=== PATIENT | male | born 1945 | race Caucasian/White ===

== ENCOUNTER 2018-01-06 11:01 | Inpatient (IN) | payer OTHER ==
[2018-01-06] MEDS ORDERED: NS 1,000 ML IV ONE ×2 (11:20→11:53)
[2018-01-06] MEDS ORDERED: HYDROmorphONE/DILAUDID 2 MG/ML INJ IVP ONE ×3 (11:21→12:25)
[2018-01-06] MEDS ORDERED: ONDANSETRON 4 MG/2 ML VIAL IVP ONE (11:21)
--- NOTE | 2018-01-06 11:49 | EDPHY ---
H & P Stated Complaint: left flank pain started ~ 1 hour ago . n/v. intermittent Time Seen by Provider: 01/06/18 11:06 HPI/ROS: This patient complains of abrupt onset of left flank pain 1 hr prior to arrival that is 9/10 intensity achy and sharp in nature and radiates to his left groin. The onset of the pain occurred when he bent over to do some saw during on a sprinkler system at home. He reports associated nausea and vomiting x3 including an episode of vomiting shortly after he ingested 600 mg of ibuprofen. He feels that he vomited up the ibuprofen. He has ongoing nausea currently. He has not taken any other medications for this pain prior to arrival. He drove himself here by private vehicle for evaluation of the symptoms. He notes that the pain is similar to prior kidney stones but also wears a may have injured himself when he bent over. ROS: Constitutional: No fevers or chills HEENT: No complaints pulmonary: No shortness of breath or cough Cardiovascular: No heart palpitations or lightheadedness. No lower extremity discoloration. Neuro: No numbness or tingling in lower extremities or back. GI: No distension. He reports mild suprapubic discomfort over the past week or so. No hematemesis. No dark tarry stools. : No testicular swelling. No dysuria. No hematuria Integumentary: No skin rash Endocrine: No complaints 10 point review of symptoms is performed and otherwise negative with exception of pertinent positives and negatives listed in HPI and ROS Source: Patient Exam Limitations: No limitations - Personal History Current Tetanus/Diphtheria Vaccine: Unsure Current Tetanus Diphtheria and Acellular Pertussis (TDAP): Unsure - Medical/Surgical History Hx Asthma: No Hx Chronic Respiratory Disease: No Hx Diabetes: No Hx Cardiac Disease: No Other PMH: kidney stones. HTN. appendectomy. rhinoplasty. b hernia repair - Social History Smoking Status: Former smoker Alcohol Use: Occasionally Drug Use: None - Physical Exam Exam: General Appearance: Alert, with some distress from pain. Patient is moving about trying to find a more comfortable position Eyes: Pupils equal and round no pallor or injection. ENT, Mouth: Mucous membranes moist. Respiratory: There are no retractions, lungs are clear to auscultation. Cardiovascular: Regular rate and rhythm. Gastrointestinal: Normoactive, soft, minimal suprapubic tenderness. No guarding or rebound. Back: No significant CVA tenderness : No right testicular tenderness. Patient does not have a left testicle no evidence of inguinal hernia currently. Neurological: GCS 15 with no focal deficits. Skin: Warm and dry, no rashes. Musculoskeletal: Neck is supple nontender. Extremities are symmetrical, full range of motion. Psychiatric: Mood and affect are normal DIFFERENTIAL DIAGNOSIS: After history and physical exam differential diagnosis was considered for kidney stone, aortic dissection, musculoskeletal back strain , diverticulitis, UTI Constitutional: Initial Vital Signs Temperature (C) 36.5 C 01/06/18 11:05 Heart Rate 86 01/06/18 11:05 Respiratory Rate 20 01/06/18 11:05 Blood Pressure 174/90 H 01/06/18 11:05 O2 Sat (%) 98 01/06/18 11:05 O2 Delivery Mode Room Air Allergies/Adverse Reactions: No Known Allergies Allergy (Verified 01/06/18 11:11) Home Medications: Medication Instructions Recorded Aspirin [Aspir 81] 81 mg PO 03/17/12 Allopurinol 01/06/18 amLODIPine BESYLATE 01/06/18 Medical Decision Making - Diagnostics Imaging Results: Imaging Impressions Abdomen/Pelvis CT 01/06/18 11:22 Impression: 1. There is a 7.4 mm stone in the proximal left ureter with mild hydronephrosis. 2. Other nonobstructing stones in both kidneys. 3. Cholelithiasis. 4. Small hiatal hernia. 5. Colonic diverticulosis. Findings and recommendations discussed with IMER POLO at 12:15 hour, . Imaging: Discussed imaging studies w/ call center associate Radiologist (I also personally reviewed these CT images) ED Course/Re-evaluation: IV normal saline bolus Zofran 4 mg IV with resolution of nausea Dilaudid 1 mg initially with some relief does 6/10 but then pain quickly recurred to severe status with 2nd dose of 0.5 mg Dilaudid thereafter Patient returns from CT with 8/10 continued pain. Is then treated with lidocaine drip (150 mg dose), and Tylenol p.o. I spoke with [id number] practitioner the hospitalist group accepts the patient to Dr. Woodruff, Hospitalist at [facility] for further hydration and analgesia. Dr. Barros will consult. The patient's daughter arrived and will take him by private vehicle for his admission to [facility]. Discussion: Patient with proximal large (7.5 mm) ureteral stone with severe pain and mild elevation of creatinine with severe pain vomiting warranting admission for further treatment of pain, dehydration and urology consult. I did speak with Dr. Barros-urologist on-call who will see the patient in the hospital in consultation. - Data Points Laboratory Results: 01/06/18 11:36 POC Sodium 143 mEq/L mEq/L (135-145) POC Potassium 3.6 mEq/L mEq/L (3.3-5.0) POC Chloride 105.0 mEq/L mEq/L (97-110) POC Total CO2 21 mEq/L L mEq/L (22-31) POC BUN 24 mg/dL H mg/dL (7-23) POC Creatinine 1.5 mg/dL H mg/dL (0.7-1.3) POC Glucose 119 mg/dL H mg/dL (70-100) POC Calcium 9.9 mg/dL mg/dL (8.5-10.4) Urine dip revealed 1+ ketones, no blood, leukocytes or other significant abnormal findings except mild protein CBC is pending Medications Given: Discontinued Medications Acetaminophen (Tylenol) 1,000 mg PO EDNOW ONE Stop: 01/06/18 12:26 Last Admin: 01/06/18 13:00 Dose: 1,000 mg Hydromorphone HCl (Dilaudid) 1 mg IVP EDNOW ONE Stop: 01/06/18 11:22 Last Admin: 01/06/18 11:33 Dose: 1 mg Hydromorphone HCl (Dilaudid) 0.5 mg IVP EDNOW ONE Stop: 01/06/18 11:47 Last Admin: 01/06/18 11:50 Dose: 0.5 mg Hydromorphone HCl (Dilaudid) 0.5 mg IVP EDNOW ONE Stop: 01/06/18 12:26 Last Admin: 01/06/18 13:57 Dose: Not Given Sodium Chloride (Ns) 1,000 mls @ 0 mls/hr IV EDNOW ONE; Wide Open PRN Reason: Protocol Stop: 01/06/18 11:21 Last Admin: 01/06/18 11:30 Dose: 1,000 mls Sodium Chloride (Ns) 1,000 mls @ 0 mls/hr IV ONCE ONE; Wide Open PRN Reason: Protocol Stop: 01/06/18 11:54 Last Admin: 01/06/18 12:15 Dose: 1,000 mls Lidocaine HCl 150 mg/ Sodium (Chloride) 115 mls @ 600 mls/hr IV EDNOW ONE Stop: 01/06/18 12:37 Last Admin: 01/06/18 12:36 Dose: 115 mls Ondansetron HCl (Zofran) 4 mg IVP EDNOW ONE Stop: 01/06/18 11:22 Last Admin: 01/06/18 11:33 Dose: 4 mg Tamsulosin HCl (Flomax) 0.4 mg PO EDNOW ONE Stop: 01/06/18 12:33 Last Admin: 01/06/18 13:00 Dose: 0.4 mg Point of Care Test Results: Chemistry 01/06/18 11:36 POC Sodium 143 mEq/L mEq/L (135-145) POC Potassium 3.6 mEq/L mEq/L (3.3-5.0) POC Chloride 105.0 mEq/L mEq/L (97-110) POC Total CO2 21 mEq/L L mEq/L (22-31) POC BUN 24 mg/dL H mg/dL (7-23) POC Creatinine 1.5 mg/dL H mg/dL (0.7-1.3) POC Glucose 119 mg/dL H mg/dL (70-100) POC Calcium 9.9 mg/dL mg/dL (8.5-10.4) Urine Dip Collection Date 01/06/18 Collection Time 13:35 Specific [place] (1.002-1.030) 1.015 PH (5.0-7.5) 7.5 Leukocytes (Negative) Negative Nitrites (Negative) Negative Protein (Negative) 1+ Glucose (Negative) Negative Ketones (Negative) 1+ Urobilnogen (0.2-1.0 EU) 0.2 Bilirubin (Negative) Negative Blood (Negative) Negative Departure - Departure Disposition: [facility] Clinical Impression: Ureteral stone with hydronephrosis, Acute renal insufficiency Condition: Fair
[2018-01-06] MEDS ORDERED: ACETAMINOPHEN 500 MG TAB PO ONE (12:25)
[2018-01-06] MEDS ORDERED: LIDOCAINE 1% 150 MG in NS 100 ML IV ONE (12:26)
[2018-01-06] MEDS ORDERED: TAMSULOSIN HCL 0.4 MG CAP PO ONE (12:32)
[2018-01-06 15:06] LABS: PLATELET COUNT 287 10^3/uL (150-400)
[2018-01-06] MEDS ORDERED: HYDROmorphONE/DILAUDID 2 MG/ML INJ IVP PRN ×2 (15:51→16:36)
[2018-01-06] MEDS ORDERED: PROMETHAZINE HCL 25 MG/ML INJ IVP PRN (16:00)
[2018-01-06] MEDS ORDERED: ONDANSETRON 4 MG/2 ML VIAL IVP PRN (16:00)
[2018-01-06] MEDS ORDERED: ACETAMINOPHEN 325 MG TAB PO PRN (16:00)
[2018-01-06] MEDS ORDERED: HYDROmorphONE/DILAUDID 1 MG/ML INJ IVP PRN (16:00)
[2018-01-06] MEDS ORDERED: ONDANSETRON DISINTEGRATING 4 MG TAB PO PRN (16:00)
[2018-01-06] MEDS ORDERED: LORazepam 2 MG/ML INJ IVP PRN (16:00)
[2018-01-06] MEDS ORDERED: KETOROLAC 15 MG/1 ML SDV IVP PRN (16:25)
[2018-01-06] MEDS: oxyCODONE IR 5 MG TAB PO PRN ×2 (16:46→20:33)
--- NOTE | 2018-01-06 17:28 | PDGENHP ---
History and Physical - Chief Complaint flank pain/n/v - History of Present Illness 72yo M with hx of kidney stones x 2 requiring lithotripsy presenting with flank pain, n/v and inability to eat since earlier today. The pain is over his left flank and radiates to his groin and is similar but much worse than the sxs he has had in the past related to kidney stones. He has not had any change in his urination, has not had fever or chills. He has been having normal BM. History Information - Allergies/Home Medication List Allergies/Adverse Reactions: No Known Allergies Allergy (Verified 01/06/18 11:11) Home Medications: Aspirin [Aspir 81] 81 mg PO 03/17/12 [Last Taken Unknown] Allopurinol 01/06/18 [Last Taken Unknown] amLODIPine BESYLATE 01/06/18 [Last Taken Unknown] I have personally reviewed and updated: family history, medical history, social history, surgical history - Past Medical History hypertension Additional medical history: kidney stones - Surgical History Reports: appendectomy, hernia repair Additional surgical history: rhinoplasty. lithotripsy - Family History Positive for: non-pertinent - Social History Smoking Status: Former smoker Alcohol Use: Occasionally Drug Use: None Review of Systems Review of Systems: ROS: 10pt was reviewed & negative except for what was stated in HPI & below Physical Exam Physical Exam: Temp Pulse Resp BP Pulse Ox 36.4 C 91 16 159/87 H 94 01/06/18 16:07 01/06/18 16:07 01/06/18 16:07 01/06/18 16:07 01/06/18 16:07 Constitutional: appears nourished, uncomfortable Eyes: PERRL, anicteric sclera Ears, Nose, Mouth, Throat: moist mucous membranes, hearing normal, ears appear normal Cardiovascular: regular rate and rhythym, no murmur, rub, or gallop, No edema Respiratory: no respiratory distress, no rales or rhonchi, clear to auscultation Gastrointestinal: normoactive bowel sounds, tenderness, No guarding, No rebound Genitourinary: no bladder tenderness Skin: warm, normal color Musculoskeletal: full muscle strength Neurologic: AAOx3 Psychiatric: interacting appropriately, not anxious, not encephalopathic Lab Data & Imaging Review 01/06/18 11:28 WBC 10.09 10^3/uL (3.80-9.50) H 01/06/18 11:28 RBC 4.94 10^6/uL (4.40-6.38) 01/06/18 11:28 Hgb 15.5 g/dL (13.7-17.5) 01/06/18 11:28 Hct 44.7 % (40.0-51.0) 01/06/18 11:28 MCV 90.5 fL (81.5-99.8) 01/06/18 11:28 MCH 31.4 pg (27.9-34.1) 01/06/18 11:28 MCHC 34.7 g/dL (32.4-36.7) 01/06/18 11:28 RDW 13.2 % (11.5-15.2) 01/06/18 11:28 Plt Count 287 10^3/uL (150-400) 01/06/18 11:28 MPV 9.6 fL (8.7-11.7) 01/06/18 11:28 Neut % (Auto) 59.7 % (39.3-74.2) 01/06/18 11:28 Lymph % (Auto) 29.9 % (15.0-45.0) 01/06/18 11:28 [place] % (Auto) 8.0 % (4.5-13.0) 01/06/18 11:28 Eos % (Auto) 1.4 % (0.6-7.6) 01/06/18 11:28 Baso % (Auto) 0.7 % (0.3-1.7) 01/06/18 11:28 Nucleat RBC Rel Count 0.0 % (0.0-0.2) 01/06/18 11:28 Absolute Neuts (auto) 6.02 10^3/uL (1.70-6.50) 01/06/18 11:28 Absolute Lymphs (auto) 3.02 10^3/uL (1.00-3.00) H 01/06/18 11:28 Absolute Monos (auto) 0.81 10^3/uL (0.30-0.80) H 01/06/18 11:28 Absolute Eos (auto) 0.14 10^3/uL (0.03-0.40) 01/06/18 11:28 Absolute Basos (auto) 0.07 10^3/uL (0.02-0.10) 01/06/18 11:28 Absolute Nucleated RBC 0.00 10^3/uL (0-0.01) 01/06/18 11:28 Immature Gran % 0.3 % (0.0-1.1) 01/06/18 11:28 Immature Gran # 0.03 10^3/uL (0.00-0.10) 01/06/18 11:28 POC Sodium 143 mEq/L (135-145) 01/06/18 11:36 POC Potassium 3.6 mEq/L (3.3-5.0) 01/06/18 11:36 POC Chloride 105.0 mEq/L (97-110) 01/06/18 11:36 POC Total CO2 21 mEq/L (22-31) L 01/06/18 11:36 POC BUN 24 mg/dL (7-23) H 01/06/18 11:36 POC Creatinine 1.5 mg/dL (0.7-1.3) H 01/06/18 11:36 POC Glucose 119 mg/dL (70-100) H 01/06/18 11:36 POC Calcium 9.9 mg/dL (8.5-10.4) 01/06/18 11:36 Urine RBC 1-3 /hpf (0-3) 01/06/18 13:46 Urine WBC 1-3 /hpf (0-3) 01/06/18 13:46 Ur Epithelial Cells NONE SEEN /lpf (NONE-1+) 01/06/18 13:46 Urine Mucus TRACE /lpf (NONE-1+) 01/06/18 13:46 Visualized and Interpreted imaging results: Yes Interpretation: abd CT: 7.4 mm stone proximal left ureter mild hydro. hiatal hernia. cholelithiasis Assessment & Plan Assessment: Acute renal insufficiency (Acute) Ureteral stone with hydronephrosis (Acute) 72 M with PMH of nephrolithiasis admitted with ureterolithiasis and luis # ureterolithiasis: fairly large and causing mild hydro, patient in significant pain that is being difficult to control at this point, will continue IV dilaudid , IV toradol. Urology has been consulted and will see the patient in am for likely stent/lithotripsy. IVF and flomax overnight. # luis: unknown baseline but likely luis in the setting of above, poor po intake and obstructive uropathy, will continue IVF overnight and recheck in am # pain: severe, as per problem 1 # HTN: slightly elevated likely due to pain, will hold lisinopril # observation status, will likely be ready to dc in am Patient new to my care. Old records reviewed and summarized as above.
--- NOTE | 2018-01-06 19:49 | ASMTCMCOM ---
CM Note CM Note Notes: Patient admitted via ED for c/o left flank pain. Per CT he does have kidney stones. H&P pending. No needs identifed, CM available should needs arise. PLan: TBD Date Signed: 01/06/2018 04:32 PM Electronically Signed By:Natividad Madera RN
[2018-01-06] MEDS: NS 1,000 ML IV SCH (23:33)
[2018-01-06] MEDS ORDERED: CALCIUM CARBONATE 500 MG CHEWABLE TAB PO PRN (23:40)
[2018-01-07] MEDS: oxyCODONE IR 5 MG TAB PO PRN ×3 (01:31→11:33)
[2018-01-07 05:34] LABS: PLATELET COUNT 240 10^3/uL (150-400)
[2018-01-07] MEDS: TAMSULOSIN HCL 0.4 MG CAP PO SCH (08:24)
[2018-01-07] MEDS: NS 1,000 ML IV SCH (08:24)
--- NOTE | 2018-01-07 09:55 | GCON ---
ADMISSION DIAGNOSIS: Has been left ureteral calculus, by history, this 72-year-old gentleman who is admitted for nausea, vomiting, and left flank pain and he has had no fevers, chills and he was admitt ed because of the 7.4 mm proximal ureteral calculus with [id number] hydronephrosis. ALLERGIES: None. MEDICATIONS: Include: Aspirin, allopurinol, and amlodipine. PAST MEDICAL HISTORY: Hypertension and kidney stones. PAST SURGICAL HISTORY: Herniorrhaphy, appendectomy, lithotripsy, rhinoplasty. FAMILY HISTORY: Noncontributory. SOCIAL HISTORY: Former smoker. Occasional alcohol use. REVIEW OF SYSTEMS: Negative for cardiac, respiratory, GI and endocrine. PHYSICAL EXAM: VITALS: Blood pressure 159/87, pulse ox 94 percent, temp 36.4, and pulse 91. Head, ears, eyes, nose, throat normal. CHEST: Clear. HEART: Regular rate and rhythm. ABDOMEN: No orga nomegaly, rebound or guarding. LOWER EXTREMITIES: Normal. Male genitourinary exam will be performed at the time of surgery. LAB DATA: He had a white blood count on admission of 10.09, hematocrit of 44.7. Creatinine 1.5, BUN 24, calcium 9.9, and his CT scan reveals a 7.4, proximal left ureteral calculus with hydronephrosis. He also has cholelithiasis and a hiatal hernia. I have discussed with him the diagnoses well infor med on previous treatments for kidney stones. He has had a prior stent, so he was understanding of w hat that is and he will undergo ureteroscopy with laser lithotripsy on , unless he passes the stone spontaneously. /[id number]/MODL
--- NOTE | 2018-01-07 10:29 | HOSPPROG ---
Hospitalist Progress Note Assessment/Plan: 72 M with h/o nephrolithiasis admitted with ureterolithiasis and aditi # ureterolithiasis - 7.4 mm stone with mild hydro. Urology consulted. No fevers, but increased pyuria and wbc's up to 15K this am. -ureteroscopy and laser lithotripsy planned for today -given subjective fever/chills, leukocytosis and abnormal UA, will tx with ceftriaxone and follow Cx data # aditi: likely 2/2 obstructive uropathy. Cr up to 1.7 this am from 1.5 -holding lisinopril -follow, anticipate improvement with tx of above # HTN: normotensive this am -holding gely due to ADITI # dispo - change to inpt for urologic intervention and ongoing management Subjective: Pt doing ok, pain controlled. Had temp >100 this am with associated chills. No N/V. No CP or SOB. Objective: Vital Signs Temp Pulse Resp BP Pulse Ox 37.6 C 83 16 124/77 H 91 L 01/07/18 08:00 01/07/18 08:00 01/07/18 08:00 01/07/18 08:00 01/07/18 08:00 Laboratory Results 01/07/18 04:42 01/07/18 04:42 01/06/18 01/07/18 01/08/18 05:59 05:59 05:59 Intake Total 2600 808 Balance 2600 808 - Physical Exam Constitutional: no apparent distress Eyes: PERRL Ears, Nose, Mouth, Throat: moist mucous membranes Cardiovascular: regular rate and rhythym Respiratory: no respiratory distress, clear to auscultation Gastrointestinal: normoactive bowel sounds, soft, non-tender abdomen Genitourinary: other (+left cva tenderness) Skin: warm Musculoskeletal: full muscle strength Neurologic: AAOx3 Psychiatric: interacting appropriately ICD10 Worksheet Patient Problems: Problems Problem Status Onset Acute renal insufficiency Acute Ureteral stone with hydronephrosis Acute
[2018-01-07] MEDS: ceFAZolin 2 GM/DEXTROSE 100 ML IV ONE ×2 (12:09→16:34)
[2018-01-07] MEDS ORDERED: IOPAMIDOL (ISOVUE-M 300) 15 ML VIAL ONE (14:51)
[2018-01-07] MEDS ORDERED: LR 1,000 ML IV ONE (15:16)
--- NOTE | 2018-01-07 15:24 | PDANEPAE ---
ANE History of Present Illness left flank pain ANE Past Medical History - Cardiovascular History Hx Hypertension: Yes Hx Arrhythmias: No Hx Chest Pain: No Hx Coronary Artery / Peripheral Vascular Disease: No Hx CHF / Valvular Disease: No Hx Palpitations: No - Pulmonary History Hx COPD: No Hx Asthma/Reactive Airway Disease: No Hx Recent Upper Respiratory Infection: No Hx Oxygen in Use at Home: No Hx Sleep Apnea: No Sleep Apnea Screening Result - Last Documented: Positive - Neurologic History Hx Cerebrovascular Accident: No Hx Seizures: No Hx Dementia: No - Endocrine History Hx Diabetes: No Hypothyroid: No Hyperthyroid: No Obesity: no - Renal History Hx Renal Disorders: Yes Renal History Comment: ADITI - Liver History Hx Hepatic Disorders: No - Neurological & Psychiatric Hx Hx Neurological and Psychiatric Disorders: No - Chronic Pain History Chronic Pain: No ANE Review of Systems Review of systems is: negative Review of Systems: - Exercise capacity Exercise capacity: >=4 METS ANE Patient History - Allergies Allergies/Adverse Reactions: No Known Allergies Allergy (Verified 01/07/18 15:09) - Home Medications Home Medications: Allopurinol [Allopurinol 100 MG (*)] 100 mg PO DAILY 01/06/18 [Last Taken 07:00] Aspirin EC [Aspirin EC 81 mg (*)] 81 mg PO DAILY 01/06/18 [Last Taken 01/06/18 0700] amLODIPine BESYLATE [Norvasc 10 mg (*)] 10 mg PO DAILY 01/06/18 [Last Taken 04/13 07:00] - NPO status NPO Status: no food or drink >8 hours NPO Since - Liquids (Date): 01/06/18 NPO Since - Liquids (Time): 19:00 NPO Since - Solids (Date): 01/06/18 NPO Since - Solids (Time): 07:00 - Anes Hx Anes Hx: no prior problems - Smoking Hx Smoking Status: Former smoker - Alcohol Use Alcohol Use: Occasionally - Family Anes Hx Family Anes Hx: none ANE Labs/Vital Signs - Labs Result Diagrams: 01/07/18 04:42 01/07/18 04:42 - Vital Signs Vital Signs: reviewed preoperatively; see RN documention for details Blood Pressure: 150/82 Heart Rate: 96 Respiratory Rate: 12 O2 Sat (%): 90 Height: 182.88 cm Weight: 95.254 kg ANE Physical Exam - Airway Neck exam: FROM Mallampati Score: Class 2 Mouth exam: normal dental/mouth exam - Pulmonary Pulmonary: no respiratory distress - Cardiovascular Cardiovascular: regular rate and rhythym - ASA Status ASA Status: II ANE Anesthesia Plan Anesthesia Plan: GA w LMA
[2018-01-07] MEDS ORDERED: LIDOCAINE 2% 2 ML INJ ONE (15:55)
[2018-01-07] MEDS ORDERED: PROPOFOL 200 MG/20 ML VIAL ONE (15:55)
[2018-01-07] MEDS ORDERED: fentaNYL 100 MCG/2 ML INJ ONE (15:55)
[2018-01-07] MEDS ORDERED: ceFAZolin 2 GM/DEXTROSE 100 ML IV ONE (16:00)
[2018-01-07] MEDS ORDERED: ONDANSETRON 4 MG/2 ML VIAL ONE (16:05)
[2018-01-07] MEDS ORDERED: DEXAMETHASONE 4 MG/ML VIAL ONE (16:05)
[2018-01-07] MEDS ORDERED: LIDOCAINE 2% JELLY 20 ML (UROJECT) UR ONE (16:15)
--- NOTE | 2018-01-07 16:16 | ASMTCMCOM ---
CM Note CM Note Notes: Patient seen in interdisciplinary rounds . He is for lithotripsy this afternoon. No needs identified. CM available should needs arise. Plan: Likely home no needs when medically cleared for discharge. Date Signed: 01/07/2018 04:14 PM Electronically Signed By:Natividad Madera RN
--- NOTE | 2018-01-07 16:46 | POSTOPPROG ---
Post Op Note Date of Operation: 01/07/18 (dictated) Surgeon: Jose Alberto Payne Anesthesiologist: Simon Anesthesia: LMA Pre-op Diagnosis: left ureterolithiasis , hydronephrosis Procedure: ureteroscopy, stent, fluoroscopy Findings: obstruction and no stone identified in ureter or kidney or bladder Inf/Abcess present in the surg proc area at time of surgery?: No EBL: Minimal Drains: Other (stent) Specimen(s): debree in renal pelvis and randalls plaques noted, no stone observed in the ureter
[2018-01-07] MEDS ORDERED: NALOXONE HCL 0.4 MG/ML INJ IVP PRN (16:49)
[2018-01-07] MEDS ORDERED: ALBUTEROL 3 ML DEYVIAL IH PRN (16:49)
[2018-01-07] MEDS ORDERED: ONDANSETRON 4 MG/2 ML VIAL IVP PRN (16:49)
[2018-01-07] MEDS ORDERED: fentaNYL 100 MCG/2 ML INJ IVP PRN (16:49)
--- NOTE | 2018-01-07 16:51 | POSTANESTH ---
Post Anesthetic Evaluation Cardiovascular Status: Similar to Pre-Op Cond Respiratory Status: Normal, Stable Level of Consciousness/Mental Status: Can Participate in Eval Pain Control: Adequate, Prn Tx Ordered Nausea/Vomiting Control: Adequate, Prn Tx Ordered Complications Possibly Related to Anesthesia: None Noted
--- NOTE | 2018-01-07 17:08 | PDMN ---
Medical Necessity Medical necessity: Change to inpt as of 01/07/18 @15:19. Pt meets inpt criteria per MD order and MCG M-320, Renal Colic and Kidney Stone, A-1 days. Est LOS>2MN for management of ureterolithiasis, 7.4 mm stone w/mild hydro, ADITI w/creat 1.7, fever, leukocytosis (WBC's elev at 15.8, up from 10 on 01/06), abnormal UA, HTN 150/82. IVF, IV ABX's, urologic intervention- ureteroscopy, stent, and fluoroscopy, ongoing med nec monitoring/treatment.
--- NOTE | 2018-01-07 17:23 | GOP ---
DATE OF OPERATION: 01/07/2018 SURGEON: Jose Alberto Payne MD ANESTHESIA: General. ANESTHESIOLOGIST: Dr. Montes. PREOPERATIVE DIAGNOSIS: Left ureteral calculus, hydronephrosis. POSTOPERATIVE DIAGNOSIS: Hydronephrosis with ureteral narrowing. PROCEDURE PERFORMED: Cystoscopy, retrograde ureteral pyelogram, ureteroscopy, and placement of urete ral stent under fluoroscopy. FINDINGS: DESCRIPTION OF PROCEDURE: The gentleman underwent general anesthesia. Prepped and draped in normal sterile fashion in dorsal lithotomy position. Urethra normal and prostate had intravesical lobe, and moderate BPH. Left ureteral orifice was cannulated with a Pollack catheter and retrograde revealed narrowing of the ureter with some mild hydronephrosis. No obvious stones identified. Then I was abl e to dilate the ureter with the ureteral access sheath and looked in each calyx of the kidney with fl uoroscopy and identified no calculi. He did have Koko's plaques and he had some inflammatory debr is in several of the calices, but did not really confirm the appearance of the stone and so after vis ualizing each calyx and under fluoroscopy, and then visualizing the ureter all the way out, he had in flammation of the ureter and narrowing, but I saw no obvious stone. Then at that point, because of t he narrowing and the debris that was in the kidney, and the appearance of the obstruction, I elected to place a 4.7 multi-length stent, curled in renal pelvis, curled in the bladder. Then, I visualized the bladder to make sure there was no stone in the bladder. Other than the BPH, no other findings, abnormalities in the bladder and then URO-jet placed in the urethra. An 18 Coy catheter passed and have them remove the catheter in the morning and discharge tomorrow. I will try to find his family to discuss with them, they were not available at the pre procedure visit. /[id number]/MODL
[2018-01-08 05:31] LABS: PLATELET COUNT 203 10^3/uL (150-400)
--- NOTE | 2018-01-08 07:57 | SOAPPROG ---
SOAP Progress Note Assessment/Plan: Assessment: Ureteral stone with hydronephrosis Acute POD # 1 no pain yet WBC rise, hospitalist to [facility] care and dc plans by internal med. remove stent one week Plan: remove stent in one week 01/08/18 08:41 Subjective: doing well Objective: Vital Signs Temp Pulse Resp BP Pulse Ox 37.4 C 79 15 122/71 H 94 01/08/18 04:00 01/08/18 04:00 01/08/18 04:00 01/08/18 04:00 01/08/18 04:00 Laboratory Results 01/08/18 05:04 01/08/18 05:04 01/07/18 01/08/18 01/09/18 05:59 05:59 05:59 Intake Total 500 Output Total 1400 200 Balance -900 -200 Physical Exam - Physical Exam General Appearance: alert Neck: supple Respiratory: No respiratory distress Cardiac/Chest: regular rate, rhythm Back: No CVA tenderness Neuro/Psych: alert, oriented x 3 ICD10 Worksheet Patient Problems: Problems Problem Status Onset Acute renal insufficiency Acute Ureteral stone with hydronephrosis Acute
[2018-01-08] MEDS: ASPIRIN EC 81 MG TAB PO SCH (09:01)
[2018-01-08] MEDS: ALLOPURINOL 100 MG TAB PO SCH (09:01)
[2018-01-08] MEDS: TAMSULOSIN HCL 0.4 MG CAP PO SCH (09:01)
--- NOTE | 2018-01-08 10:17 | HOSPPROG ---
Hospitalist Progress Note Assessment/Plan: 72 M with h/o nephrolithiasis admitted with ureterolithiasis and luis # ureterolithiasis - 7.4 mm stone with mild hydro. s/p ureteral stent. lithotripsy planned, but no stone found. WBC's up to 25K this am from 10K on admission. UCx and BCx's pending Afebrile, no symptoms. -cont ceftriaxone, trend wbc's (?element of stress response after procedure) -f/u Cx data -needs urology f/u 1 week for stent removal # luis: likely 2/2 obstructive uropathy. Cr improved to 1.3 from 1.7 -lisinopril held, resume at d/c # HTN: normotensive this am # dispo - cont inpt, possible dc in am if remains stable Subjective: Pt feels better. No pain. No fevers/chills. No N/V. Tolerating po. Objective: Vital Signs Temp Pulse Resp BP Pulse Ox 37.0 C 71 16 117/72 95 01/08/18 08:58 01/08/18 08:58 01/08/18 08:58 01/08/18 08:58 01/08/18 08:58 Laboratory Results 01/08/18 05:04 01/08/18 05:04 01/07/18 01/08/18 01/09/18 05:59 05:59 05:59 Intake Total 500 Output Total 1400 800 Balance -900 -800 - Physical Exam Constitutional: no apparent distress Eyes: PERRL Ears, Nose, Mouth, Throat: moist mucous membranes Cardiovascular: regular rate and rhythym Respiratory: no respiratory distress, clear to auscultation Gastrointestinal: normoactive bowel sounds, soft, non-tender abdomen Skin: warm Musculoskeletal: full muscle strength Neurologic: AAOx3 Psychiatric: interacting appropriately ICD10 Worksheet Patient Problems: Problems Problem Status Onset Acute renal insufficiency Acute Ureteral stone with hydronephrosis Acute
--- NOTE | 2018-01-08 14:42 | ASMTCMCOM ---
CM Note CM Note Notes: Patient seen in interdisciplinary rounds, Plan of care reviewed. He will stay overnight for observation. No needs identified. CM available should needs arise. Plan: Home independently when medically cleared for discharge. Date Signed: 01/08/2018 02:25 PM Electronically Signed By:Natividad Madera RN
[2018-01-08] MEDS ORDERED: VANCOMYCIN 1.5 GM in NS 250 ML IV SCH (16:30)
[2018-01-09 05:24] LABS: PLATELET COUNT 217 10^3/uL (150-400)
[2018-01-09] MEDS: ASPIRIN EC 81 MG TAB PO SCH (08:58)
[2018-01-09] MEDS: ALLOPURINOL 100 MG TAB PO SCH (08:58)
[2018-01-09] MEDS: TAMSULOSIN HCL 0.4 MG CAP PO SCH (08:58)
[2018-01-09 09:02] VITALS: BP 132/74
--- NOTE | 2018-01-09 15:29 | ASDISCHSUM ---
Discharge Information Plan Status:Home with No Needs Medically Cleared to Leave:01/09/2018 Discharge Date:01/09/2018 10:54 AM CM D/C Disposition:Home, Routine, Self-Care ADT D/C Disposition:Home, Routine, Self-Care Projected Discharge Date:01/09/2018 10:54 AM Transportation at D/C:Family Discharge Delay Reason: Follow-Up Date:01/09/2018 10:54 AM Discharge Slot: Final Diagnosis: Placement Information Patient Contact Information Contact Name:LINETTE Relationship: Address:[address] Work Phone: City:[place] Phone: State/Zip Code:[place] [address] Email: Financial Information Financial Class:Medicare Advantage Plans Primary Plan Desc:ADOLFO MUÑOZ MEDICARE Primary Plan Number:[id number] Secondary Plan Desc: Secondary Plan Number: Assessment Information BC CM Progress Note CM Note CM Note Notes: Patient admitted via ED for c/o left flank pain. Per CT he does have kidney stones. H&P pending. No needs identifed, CM available should needs arise. PLan: TBD Date Signed: 01/06/2018 04:32 PM Electronically Signed By:Natividad Madera RN LACE LACVannessa Length of stay for Answers: 2 days current admission Acuity / Level of Answers: Yes Care: Did the patient have an inpatient admission? Comorbidities - select Answers: Other Notes: HTN; Kidney stones all that apply # of Emergency department Answers: 1-2 visits in the last 6 months Score: 7 Date Signed: 01/09/2018 03:27 PM Electronically Signed By:Amrita Leogn, [employer]IOR [employer]IST [facility] CM Progress Note CM Note CM Note Notes: Patient seen in interdisciplinary rounds . He is for lithotripsy this afternoon. No needs identified. CM available should needs arise. Plan: Likely home no needs when medically cleared for discharge. Date Signed: 01/07/2018 04:14 PM Electronically Signed By:Natividad Madera RN [facility] CM Progress Note CM Note CM Note Notes: Patient seen in interdisciplinary rounds, Plan of care reviewed. He will stay overnight for observation. No needs identified. CM available should needs arise. Plan: Home independently when medically cleared for discharge. Date Signed: 01/08/2018 02:25 PM Electronically Signed By:Natividad Madera RN Case Management Discharge Plan Note Case Management Discharge Discharge Order Complete? Answers: Yes Patient to Obtain Answers: via Family Medications Transportation Arranged Answers: Family/Friends Discharge Comments Notes: Pt is discharging home today with family and no CM needs. Intervention Information
--- NOTE | 2018-01-09 17:23 | GDS ---
DISCHARGE DIAGNOSES: 1. Ureterolithiasis, status post ureteral stent. 2. Complicated urinary tract infection in the setting of ureteral obstruction. 3. Acute kidney injury, resolved. 4. Hypertension. CONSULTANTS: Dr. Jose Alberto Payne, Urology. HISTORY OF PRESENT ILLNESS: For details please see History and Physical dated January 06, 2018. Corona Escalera is a 72-year-old male with history of previous kidney stones, who presents to the emergency department with flank pain, nausea, and vomiting. CT imaging revealed a 7.4 mm stone in the proxima l left ureter with mild hydronephrosis. He was admitted to the hospital for further management. HOSPITAL COURSE: Patient was admitted to the Medical/Surgical unit. Urology consult was obtained. He was initially treated for pain with IV Dilaudid and IV Toradol. He was made n.p.o. and went for p lanned lithotripsy the following day. However, Urology was unable to find the stone. Therefore, gayla nt was placed. Preoperatively, it was noted his white blood cell count increased to 15,000. He was beginning to develop low-grade fevers. He was treated with ceftriaxone for presumed early infection. His urinalysis showed 25 to 50 white cells, but negative nitrites and 2+ blood. He did eventually spike a fever to 39.1 degrees. His urine culture returned positive for Enterococcus faecalis, which was not covered by ceftriaxone. At that point, his therapy was transitioned to vancomycin. On the d ay of discharge, I received sensitivities that his enterococcus is ampicillin sensitive. His white b lood cell count has trended down. He has been afebrile for greater than 24 hours. He had no hypoten rajiv or signs of severe sepsis. He wishes to go home. I think he is safe to transition to oral anti biotics. He will follow up with Urology for stent removal. He did have an acute kidney injury on arrival with a creatinine of 1.5. This nishant to 1.7, but resolv ed to a creatinine of 1.2 on the day of discharge after ureteral stent placement. DISPOSITION: Patient is discharged home in stable condition. FOLLOWUP: 1. Dr. Jose Alberto Payne, Urology, in 1 week for stent removal. 2. Dr. David Earl, Primary Care. DISCHARGE MEDICATIONS: Please see [employer] completed outpatient medication list. NEW MEDICATIONS ON DISCHARGE: Include: Amoxicillin 500 mg p.o. q.8 hours #36 tablets to complete a 2 week course. He will continue all other outpatient medications as previously prescribed includin. Allopurinol 100 mg daily. 2. Aspirin 81 mg p.o. daily. 3. Amlodipine 10 mg p.o. daily. /[id number]/MODL
== END 2018-01-09 10:54 | disposition home or self-care (01) | DRG 694 ==
LOC: CED 11:01 → F3N 13:17 → F1N 15:12 → OBSVTOIN 01-07 15:19
PROVIDERS: ADMIT Internal Medicine; ATTEND Hospitalist
PROC: 0T9780Z Drainage of Left Ureter with Drainage Device, Via Natural or Artificial Opening Endoscopic (ICD-10-PCS; principal; 2018-01-07 16:30)
DX: N13.2 Hydronephrosis with renal and ureteral calculous obstruction (principal); N17.9 Acute kidney failure, unspecified; N39.0 Urinary tract infection, site not specified; B95.2 Enterococcus as the cause of diseases classified elsewhere; I10 Essential (primary) hypertension; Z87.891 Personal history of nicotine dependence; Z87.442 Personal history of urinary calculi
CPT/HCPCS: 74176-PO; 80048-PO; 96374; C1758; C1769; C1894; C2625; G0378; J0690; J0696; J1100; J1170; J1885; J2405; J2704; J3010; J3370; Q9967

== ENCOUNTER 2018-01-17 19:51 | Emergency (ER) | payer OTHER ==
--- NOTE | 2018-01-17 19:55 | EDPHY ---
H & P Time Seen by Provider: 01/17/18 19:54 HPI/ROS: CHIEF COMPLAINT: Flank and lower abdominal pain on the left HISTORY OF PRESENT ILLNESS: This is a 72-year-old male with known renal and ureterolithiasis who presents with left flank and left lower quadrant pain that began 1-2 hours prior to presentation tonight. He was admitted to [facility] from January 06 through January 09 with left ureterolithiasis. At that time he had a ureteral stone that measured over 7 mm. He underwent ureteral stenting and laser lithotripsy and states that the stone was not visualized at the time of those procedures. He also developed acute kidney injury and urinary tract infection secondary to Enterococcus faecalis. He is taking M oxacillin. He had been doing well at home until tonight when he had the acute onset of pain. The pain feels like his previous kidney stones. He took 2 Tylenol prior to coming to the emergency department. He has not had vomiting. He denies fever. No scrotal pain. No inguinal bulge. REVIEW OF SYSTEMS: A ten system review of systems was performed and is negative with the exception of the items mentioned in the HPI. Past medical history: 1. Renal and ureterolithiasis 2. Hypertension 3. Hard of hearing Past surgical history: 1. Lithotripsy x3 2. Appendectomy 3. Bilateral inguinal hernia repairs (with loss of left testicle during LIH) 4. Rhinoplasty Social history: He is . General Appearance: Alert. Vital signs reviewed. Eyes: Pupils equal and round, no conjunctival injection, no discharge. Anicteric. ENT, Mouth: Mucous membranes are moist, no oropharyngeal erythema or edema. Neck: No lymphadenopathy, supple. Respiratory: Lungs are clear to auscultation; no wheezes, rales, or rhonchi. Cardiovascular: Regular rate and rhythm; no murmur, rub, or gallop. Gastrointestinal: Abdomen is soft and nontender, no masses or organomegaly, bowel sounds normal. No appreciable inguinal hernia on the left. Skin: Warm and dry, no rashes on exposed skin, normal color. Back: Nontender to palpation over the thoracolumbar spine. No CVAT. Extremities: No lower extremity edema, no calf tenderness or swelling. Neurological: Alert and oriented. Moving all four extremities easily and equally. Psychiatric: Normal affect. - Medical/Surgical History Hx Asthma: No Hx Chronic Respiratory Disease: No Hx Diabetes: No Hx Cardiac Disease: No Other PMH: kidney stones. HTN. appendectomy. rhinoplasty. b hernia repair - Social History Smoking Status: Former smoker Constitutional: Initial Vital Signs Temperature (C) 36.6 C 01/17/18 19:57 Heart Rate 89 01/17/18 19:57 Respiratory Rate 18 01/17/18 19:57 Blood Pressure 174/91 H 01/17/18 19:57 O2 Sat (%) 98 01/17/18 19:57 O2 Delivery Mode Room Air Allergies/Adverse Reactions: No Known Allergies Allergy (Verified 01/17/18 19:57) Home Medications: Medication Instructions Recorded Allopurinol [Allopurinol 100 MG 100 mg PO DAILY 01/06/18 (*)] Aspirin EC [Aspirin EC 81 mg (*)] 81 mg PO DAILY 01/06/18 amLODIPine BESYLATE [Norvasc 10 mg 10 mg PO DAILY 01/06/18 (*)] Amoxicillin Trihydrate [Amoxil] 500 mg PO Q8HRS #36 cap 01/09/18 Hydrocodone/APAP 5/325 [[place] 1 - 2 tab PO Q4 PRN #10 tab 01/17/18 5/325 (RX)] Medical Decision Making ED Course/Re-evaluation: 72-year-old with presumed ureterolithiasis resulting in left flank and lower abdominal pain. He received 1 mg of Dilaudid, 4 mg Zofran, and 15 mg Toradol; all IV. He was re-evaluated at 8:20 p.m. And rates his pain as much improved, now "four over 10". He is resting much more comfortably. His abdomen remains soft with some mild to moderate left lower quadrant tenderness, no guarding. No inguinal bulge or hernia appreciated on repeat exam. He was offered additional pain medicine, but prefers to return home. He understands that his creatinine is climbing and is 1.6 today. He was given a dose of flomax. We discussed CT scanning or KUB to assess for stone. At this point in time, he would like to return home. Danger signs have been reviewed with him. He will FU with urology. Differential Diagnosis: Flank pain including but not limited to musculoskeletal causes, kidney stone, pyelonephritis, shingles, and intra-abdominal causes such as diverticulitis and appendicitis. - Data Points Medications Given: Discontinued Medications Hydrocodone Bitart/Acetaminophen ([place] 5/325mg Prepack#6) 1 btl TAKEHOME EDNOW ONE Stop: 01/17/18 21:16 Last Admin: 01/17/18 21:20 Dose: 1 btl Hydromorphone HCl (Dilaudid) 1 mg IVP EDNOW ONE Stop: 01/17/18 20:03 Last Admin: 01/17/18 20:08 Dose: 1 mg Sodium Chloride (Ns) 1,000 mls @ 0 mls/hr IV EDNOW ONE; Wide Open PRN Reason: Protocol Stop: 01/17/18 20:03 Last Admin: 01/17/18 20:06 Dose: 1,000 mls Ketorolac Tromethamine (Toradol) 15 mg IVP EDNOW ONE Stop: 01/17/18 20:03 Last Admin: 01/17/18 20:08 Dose: 15 mg Ondansetron HCl (Zofran) 4 mg IVP EDNOW ONE Stop: 01/17/18 20:03 Last Admin: 01/17/18 20:06 Dose: 4 mg Tamsulosin HCl (Flomax) 0.4 mg PO EDNOW ONE Stop: 01/17/18 21:15 Last Admin: 01/17/18 21:20 Dose: 0.4 mg Point of Care Test Results: CBC CBC Collection Date 01/17/18 CBC Collection Time 20:05 WBC 11.7 RBC 4.75 HGB 14.9 HCT 44.1 PLT 392 Neut # 7.8 Neut 66.3 LYMPH # 3.5 LYMPH 29.9 Other WBC # 0.4 Other WBC 3.8 MCV 92.8 Chemistry 01/17/18 20:09 POC Sodium 145 mEq/L mEq/L (135-145) POC Potassium 3.8 mEq/L mEq/L (3.3-5.0) POC Chloride 105.0 mEq/L mEq/L (97-110) POC Total CO2 23 mEq/L mEq/L (22-31) POC BUN 17 mg/dL mg/dL (7-23) POC Creatinine 1.6 mg/dL H mg/dL (0.7-1.3) POC Glucose 123 mg/dL H mg/dL (70-100) POC Calcium 9.8 mg/dL mg/dL (8.5-10.4) Urine Dip Collection Date 01/17/18 Collection Time 20:00 Specific [place] (1.002-1.030) 1.020 PH (5.0-7.5) 6.0 Leukocytes (Negative) Negative Nitrites (Negative) Negative Protein (Negative) Trace Glucose (Negative) Negative Ketones (Negative) Negative Urobilnogen (0.2-1.0 EU) 0.2 Bilirubin (Negative) Negative Blood (Negative) Trace Departure - Departure Disposition: Home, Routine, Self-Care Clinical Impression: Ureterolithiasis, Acute renal insufficiency Condition: Good Instructions: Hydrocodone/Acetaminophen (By mouth), Ureteral Stones (ED) Additional Instructions: I think that your pain is due to a ureteral stone. As you know, we did not do any imaging studies. If you have the return of severe pain, take 1-2 of the hydrocodone/acetaminophen tablets. Each 1 of these pills contains 325 mg of acetaminophen, which is Tylenol. Keep track of the overall amount of Tylenol that you take because you should not take more than 3000 mg in a 24 hr time period. If this does not control your pain you might need to return to the emergency department. If you develop fever, vomiting, any new or concerning symptoms--please return to the emergency department for another evaluation. Call Dr. Payne's office in the morning and ask to be seen by him tomorrow or the following day. Let the office staff know that you were back in the emergency department, that your creatinine is rising again, and that you required opiate medication for pain control. Referrals: David Earl [Primary Care Provider] - As per Instructions Stand Alone Forms: Narcotic Guidelines Prescriptions: Hydrocodone/APAP 5/325 [[place] 5/325 (RX)] 1 - 2 tab PO Q4 PRN #10 tab PRN Reason: pain
[2018-01-17] MEDS ORDERED: HYDROmorphONE/DILAUDID 1 MG/ML INJ ONE (20:00)
[2018-01-17] MEDS ORDERED: KETOROLAC 15 MG/1 ML SDV ONE (20:00)
[2018-01-17] MEDS ORDERED: ONDANSETRON 4 MG/2 ML VIAL ONE (20:01)
[2018-01-17] MEDS ORDERED: NS 1,000 ML IV ONE (20:02)
[2018-01-17] MEDS ORDERED: KETOROLAC 15 MG/1 ML SDV IVP ONE (20:02)
[2018-01-17] MEDS ORDERED: HYDROmorphONE/DILAUDID 2 MG/ML INJ IVP ONE (20:02)
[2018-01-17] MEDS ORDERED: ONDANSETRON 4 MG/2 ML VIAL IVP ONE (20:02)
[2018-01-17 21:11] VITALS: BP 137/82
[2018-01-17] MEDS ORDERED: TAMSULOSIN HCL 0.4 MG CAP PO ONE (21:14)
[2018-01-17] MEDS ORDERED: HYDROCOD/APAP 5/325 PREPACK#6 BTL TAKEHOME ONE (21:15)
== END 2018-01-17 21:26 | disposition home or self-care (01) ==
LOC: CED 19:51
DX: N20.1 Calculus of ureter (principal); I10 Essential (primary) hypertension; N28.9 Disorder of kidney and ureter, unspecified; Z87.891 Personal history of nicotine dependence
CPT/HCPCS: 96361; 96374; 96375; 99284; J1170; J1885; J2405; 80048-PO

== ENCOUNTER → 2018-01-18 | Outpatient (CLI) | payer OTHER | LOC: FIMAGING 10:52 | PROVIDERS: ATTEND Specialist | DX: N20.1 Calculus of ureter (principal); N13.30 Unspecified hydronephrosis; K80.20 Calculus of gallbladder without cholecystitis without obstruction; K44.9 Diaphragmatic hernia without obstruction or gangrene; M89.8X8 Other specified disorders of bone, other site ==

== ENCOUNTER → 2018-03-08 | Outpatient (CLI) | payer OTHER ==
[~2018-03-08] MED LIST: FUROSEMIDE 20 MG/2 ML VIAL IV ONE; FUROSEMIDE 40 MG/4 ML VIAL ONE
== END ==
LOC: FIMAGING 14:13
PROVIDERS: ATTEND Physician Assistant Medical
DX: N40.1 Benign prostatic hyperplasia with lower urinary tract symptoms (principal); N13.30 Unspecified hydronephrosis; R33.9 Retention of urine, unspecified; Z87.442 Personal history of urinary calculi
CPT/HCPCS: 78708; J1940

== ENCOUNTER 2018-05-30 12:02 | Observation (INO) | payer OTHER ==
[2018-05-30] MEDS ORDERED: NS 1,000 ML IV ONE ×2 (12:54→14:19)
[2018-05-30] MEDS ORDERED: LIDOCAINE 2% JELLY 20 ML (UROJECT) ONE (13:41)
--- NOTE | 2018-05-30 14:10 | EDPHY ---
H & P Stated Complaint: burning,pain with urination,hesitancy,dysuria for 4 days Time Seen by Provider: 05/30/18 12:32 HPI/ROS: This patient presents with urinary symptoms. He explains that he developed urinary frequency and dysuria 4 days prior to arrival. He presented to [facility] urgent care where he had a positive urinalysis consistent with UTI and was started on Bactrim antibiotics total of 7 days prescribed any reports compliance of the 1st 3 and half days of treatment. However, he reports an increase in severity of his symptoms in terms of the dysuria and urinary urgency. At the same time he develops new onset of difficulty passing urine and small urine volumes. He was up several times during the night to urinate with only small amounts each time. He had some associated stress incontinence and reports onset of mild suprapubic pressure today. He denies any other complaints. His symptoms remind him of an episode of prostatitis that he suffered 9 years ago. At that time he had relief from a treatment of sulfa antibiotic. He came in today by private vehicle for evaluation. He review of the urine culture that was faxed from the outlying urgent care facility reveals Klebsiella a greater than 100,000 colonies per mL sensitive to Bactrim and other antibiotics. ROS: Constitutional he denies any significant fevers or chills HEENT: No complaints pulmonary: No complaints cardiovascular: No complaints GI: He denies abdominal pain. He did have 1 episode of vomiting 1st day of antibiotics. No vomiting since that time. : No testicular pain. He denies any flank pain. Source: Patient Exam Limitations: No limitations - Personal History Current Tetanus Diphtheria and Acellular Pertussis (TDAP): No - Medical/Surgical History PMH: Inguinal hernias with repair several years ago Orchiectomy as a complication of left inguinal hernia repair with vascular inj. (1 remaining healthy testicle on L) Hx Asthma: No Hx Chronic Respiratory Disease: No Hx Diabetes: No Hx Cardiac Disease: No Hx Renal Disease: Yes Hx Cirrhosis: No Hx Alcoholism: No Hx HIV/AIDS: No Hx Splenectomy or Spleen Trauma: No Other PMH: kidney stones,lithotripsies. HTN. appendectomy,margarito. rhinoplasty. cynthia hernia repair,prostate infection,UTI - Social History Smoking Status: Former smoker Alcohol Use: Rarely Drug Use: None - Physical Exam Exam: General Appearance: Alert, no distress. Eyes: Pupils equal and round no pallor or injection. ENT, Mouth: Mucous membranes moist. Respiratory: There are no retractions, lungs are clear to auscultation. Cardiovascular: Regular rate and rhythm. Gastrointestinal: Abdomen is soft and nontender, no masses, bowel sounds normal. Neurological: [ ] Skin: Warm and dry, no rashes. Musculoskeletal: Neck is supple nontender. Extremities are symmetrical, full range of motion. Psychiatric: Patient is oriented X 3, there is no agitation. DIFFERENTIAL DIAGNOSIS: After history and physical exam differential diagnosis was considered for [ ] the the the a Constitutional: Initial Vital Signs Temperature (C) 36.9 C 05/30/18 12:26 Heart Rate 75 05/30/18 12:26 Respiratory Rate 14 05/30/18 12:26 Blood Pressure 133/82 H 05/30/18 12:26 O2 Sat (%) 96 05/30/18 12:26 O2 Delivery Mode Room Air Allergies/Adverse Reactions: No Known Allergies Allergy (Verified 05/30/18 12:24) Home Medications: Medication Instructions Recorded Allopurinol [Allopurinol 100 MG 100 mg PO DAILY 01/06/18 (*)] amLODIPine BESYLATE [Norvasc 10 mg 10 mg PO DAILY 01/06/18 (*)] Indomethacin 05/30/18 Medical Decision Making ED Course/Re-evaluation: IV normal saline bolus Coy catheter with 500 cc residual urine to Coy bag. (patient could urinate upon arrival here despite urgency and suprapubic discomfort) Labs: POC basic metabolic panel notable for elevation of creatinine 2.4. CBC is normal. Urinalysis reveals hematuria but no other positive findings on a urine dip I reviewed labs that reveal new onset elevations creatinine 2.4 consistent with acute kidney injury and obstructive uropathy likely attributable to prostatitis and/ or prostatic hypertrophy. He may also has some kidney injury due to sulfa. Patient's history does not reveal any significant findings be consistent dehydration other than some nausea and vomiting x1 After reviewing lab results with kidney injury or 2nd L of saline Patient sent to CT to evaluate for potential nephrolithiasis. I spoke with Dr. Lucero, hospitalist at [facility] accepts patient for admission for acute kidney injury. - Data Points Laboratory Results: 05/30/18 13:08 POC Sodium 139 mEq/L mEq/L (135-145) POC Potassium 3.8 mEq/L mEq/L (3.3-5.0) POC Chloride 106.0 mEq/L mEq/L (97-110) POC Total CO2 20 mEq/L L mEq/L (22-31) POC BUN 20 mg/dL mg/dL (7-23) POC Creatinine 2.4 mg/dL H mg/dL (0.7-1.3) POC Glucose 112 mg/dL H mg/dL (70-100) POC Calcium 9.6 mg/dL mg/dL (8.5-10.4) Medications Given: Discontinued Medications Sodium Chloride (Ns) 1,000 mls @ 0 mls/hr IV EDNOW ONE; Wide Open PRN Reason: Protocol Stop: 05/30/18 12:55 Last Admin: 05/30/18 13:00 Dose: 1,000 mls Sodium Chloride (Ns) 1,000 mls @ 0 mls/hr IV ONCE ONE; Wide Open PRN Reason: Protocol Stop: 05/30/18 14:20 Last Admin: 05/30/18 14:23 Dose: 1,000 mls Point of Care Test Results: CBC CBC Collection Date 05/30/18 CBC Collection Time 13:01 WBC 7.79 RBC 4.56 HGB 14.2 HCT 41.2 PLT 286 Neut # 5.31 Neut 68.2 LYMPH # 1.21 LYMPH 15.5 MCV 90.4 Chemistry 05/30/18 13:08 POC Sodium 139 mEq/L mEq/L (135-145) POC Potassium 3.8 mEq/L mEq/L (3.3-5.0) POC Chloride 106.0 mEq/L mEq/L (97-110) POC Total CO2 20 mEq/L L mEq/L (22-31) POC BUN 20 mg/dL mg/dL (7-23) POC Creatinine 2.4 mg/dL H mg/dL (0.7-1.3) POC Glucose 112 mg/dL H mg/dL (70-100) POC Calcium 9.6 mg/dL mg/dL (8.5-10.4) Urine Dip Collection Date 05/30/18 Collection Time 14:10 Specific [place] (1.002-1.030) 1.020 PH (5.0-7.5) 5.5 Leukocytes (Negative) Negative Nitrites (Negative) Negative Protein (Negative) Negative Glucose (Negative) Negative Ketones (Negative) Negative Urobilnogen (0.2-1.0 EU) 0.2 Bilirubin (Negative) Negative Blood (Negative) 1+ Departure - Departure Disposition: [facility] Inpatient Acute Clinical Impression: Acute kidney injury, Obstructive uropathy Prostatitis Qualifiers: Prostatitis type: acute Qualified Code(s): N41.0 - Acute prostatitis Condition: Good Referrals: HERB,VLADIMIR HERNÁNDEZ [Other] - As per Instructions
[2018-05-30] MEDS ORDERED: TAMSULOSIN HCL 0.4 MG CAP PO ONE (14:50)
[2018-05-30] MEDS ORDERED: NS 1,000 ML IV SCH (16:15)
[2018-05-30] MEDS ORDERED: ONDANSETRON DISINTEGRATING 4 MG TAB PO PRN (16:15)
[2018-05-30] MEDS ORDERED: ACETAMINOPHEN 325 MG TAB PO PRN (16:15)
[2018-05-30] MEDS ORDERED: ONDANSETRON 4 MG/2 ML VIAL IVP PRN (16:15)
[2018-05-30] MEDS ORDERED: oxyCODONE IR 5 MG TAB PO PRN (16:15)
--- NOTE | 2018-05-30 16:57 | PDGENHP ---
History and Physical - Chief Complaint unable to urinate - History of Present Illness 73yo M with a history of kidney stones s/p lithotripsy and ureteral stent placement [place] [facility] [place] to [place]. Symptoms started 5 days ago with dysuria, urinary frequency, fevers, and chills. Went to [facility] urgent care 3 days ago. UA dirty, prescribed bactrim which he has been taking. Dysuria and fevers abated but over last 24 hours he noticed that he had the urge to urinate but only a few drops would come out. Woke up 15-16 times last night with these symptoms. Has been taking aleve. Today had pain in suprapubic region and decided to come to ED where creatinine was found to be 2.4. A lange catheter was placed with 500mL of urine output. A CT of his abdomen without contrast showed left hydronephrosis with non-obstructive nephrolithiasis, prostamegaly, no right hydro. He was given a dose of ceftriaxone, IVF, and flomax and transferred to this facility. I reviewed the results of his recent urine culture from 05/27 which grew >100k CFU of Klebsiella oxytoca that is resistant to ampicillin and cefazolin. History Information - Allergies/Home Medication List Allergies/Adverse Reactions: lisinopril Allergy (Unknown, Verified 05/30/18 17:04) Increased Blood Pressure Home Medications: Allopurinol [Allopurinol 100 MG (*)] 100 mg PO DAILY 01/06/18 [Last Taken ] amLODIPine BESYLATE [Norvasc 10 mg (*)] 10 mg PO DAILY 01/06/18 [Last Taken 06/15] Aspirin EC [Aspirin EC 81 mg (*)] 81 mg PO DAILY 05/30/18 [Last Taken 05/29/18] Naproxen Sodium [Aleve 220 MG (*)] 440 mg PO BID PRN 05/30/18 [Last Taken ] I have personally reviewed and updated: family history, medical history, social history, surgical history - Past Medical History hypertension Additional medical history: kidney stones s/p lithotripsy and left ureteral stent x2, HTN, remote prostatitis - Surgical History Reports: appendectomy, hernia repair Additional surgical history: rhinoplasty. lithotripsy - Family History Positive for: non-pertinent - Social History Smoking Status: Former smoker Alcohol Use: Rarely Drug Use: None Review of Systems Review of Systems: ROS: 10pt was reviewed & negative except for what was stated in HPI & below Physical Exam Physical Exam: Temp Pulse Resp BP Pulse Ox 36.7 C 69 17 134/80 H 96 05/30/18 16:20 05/30/18 16:20 05/30/18 16:20 05/30/18 16:20 05/30/18 16:20 Constitutional: no apparent distress, appears nourished, not in pain Eyes: PERRL, anicteric sclera, EOMI Ears, Nose, Mouth, Throat: moist mucous membranes, hearing normal, ears appear normal, no oral mucosal ulcers Cardiovascular: regular rate and rhythym, no murmur, rub, or gallop, No edema Respiratory: no respiratory distress, no rales or rhonchi, clear to auscultation Gastrointestinal: normoactive bowel sounds, soft, non-tender abdomen, no palpable masses Genitourinary: no bladder fullness, no bladder tenderness Skin: warm, normal color, no rashes or abrasions, no fluctuance, no induration, No mottled Musculoskeletal: full muscle strength, no muscle tenderness, normal joint ROM, no joint effusions Neurologic: AAOx3 Psychiatric: interacting appropriately, not anxious, not encephalopathic, thought process linear Lab Data & Imaging Review POC Sodium 139 mEq/L (135-145) 05/30/18 13:08 POC Potassium 3.8 mEq/L (3.3-5.0) 05/30/18 13:08 POC Chloride 106.0 mEq/L (97-110) 05/30/18 13:08 POC Total CO2 20 mEq/L (22-31) L 05/30/18 13:08 POC BUN 20 mg/dL (7-23) 05/30/18 13:08 POC Creatinine 2.4 mg/dL (0.7-1.3) H 05/30/18 13:08 POC Glucose 112 mg/dL (70-100) H 05/30/18 13:08 POC Calcium 9.6 mg/dL (8.5-10.4) 05/30/18 13:08 Assessment & Plan Assessment: 73yo M with a history of kidney stones requiring ureteral stent placement, persistent left hydronephrosis who is currently being treated for UTI [place] [facility] [place] to urinate found to have ADITI. Plan: 1. ADITI: Suspect multifactorial from bladder outlet obstruction, infection, nsaid use, and artificial increase from bactrim. - Urine lytes unlikely to be helpful as he has already received significant fluids and lange - IV hydration - Lange catheter in place - Recheck renal fxn in AM, avoid nephrotoxins 2. Urinary retention: Likely outflow obstruction related to prostamegaly vs infection (ie. acute prostatitis) however, interestingly, he only has unilateral hydronephrosis. A NM renal scan from 02/2019 after ureteral stent was removed showed persistent left hydronephrosis. - Lange as above. Likely will need to continue at discharge - Urology follow up as outpatient, consider CT pyelogram once lange out 3. Klebsiella UTI vs prostatitis: Not septic. No kidney stones identified on CT. - s/p 1g ceftriaxone in ED - Will avoid bactrim. Start cefdinir 300mg BID tomorrow to complete course 4. HTN: Continue home amlodipine. 5. Gout: No acute flare. On allopurinol. VTE ppx: SQH Code: full Diet: regular Dispo: Admit under observation
[2018-05-30] MEDS ORDERED: MELATONIN 3 MG TAB PO SCH (21:00)
[2018-05-30] MEDS: HEPARIN 5,000 UNIT/0.5 ML INJ SC SCH (21:55)
[2018-05-31 04:40] LABS: PLATELET COUNT 266 10^3/uL (150-400)
[2018-05-31] MEDS: HEPARIN 5,000 UNIT/0.5 ML INJ SC SCH (05:57)
[2018-05-31 08:27] VITALS: BP 115/65
[2018-05-31] MEDS ORDERED: CEFDINIR 300 MG CAP PO SCH (09:00)
[2018-05-31] MEDS ORDERED: ALLOPURINOL 100 MG TAB PO SCH (09:00)
--- NOTE | 2018-05-31 10:51 | ASMTLACE ---
LACE Length of stay for Answers: Less than 1 day current admission Acuity / Level of Answers: Yes Care: Did the patient have an inpatient admission? Comorbidities - select Answers: Mild liver or renal all that apply disease Other Notes: HTN # of Emergency department Answers: 3-4 visits in the last 6 months Score: 9 Date Signed: 05/31/2018 10:50 AM Electronically Signed By:Natividad Madera RN
--- NOTE | 2018-05-31 10:56 | ASMTCMCOM ---
CM Note CM Note Notes: Chart reviewed Discussed plan of care with MD. He is a 73 year old male living independently came into ED with c/o signs of UTI. He has been medically cleared for discharge. No needs identified at this time. CM available should needs arise. Plan: Home with outpatient follow up. Date Signed: 05/31/2018 10:56 AM Electronically Signed By:Natividad Madera RN
--- NOTE | 2018-05-31 11:26 | GDS ---
[f rep st] DISCHARGE SUMMARY ALL DIAGNOSES: 1. Acute on chronic kidney injury. 2. Urinary retention. 3. Klebsiella oxytoca urinary tract infection. 4. Hypertension. 5. Gout. HOSPITAL COURSE: A 73-year-old man who was recently diagnosed with urinary tract infection, started on Bactrim. He presented to the emergency department unable to urinate. With difficulty, a Coy wa s placed in the emergency department. CT scan showed left-sided stent with persistent left-sided hyd ronephrosis, had left nonobstructive nephrolithiasis. He had 500 cc return when the Coy was placed . Baseline creatinine is somewhere 1.4 to 1.7, his presentation creatinine was 2.4. He had been taking some Aleve as well. Creatinine improved to 1.7 overnight. He received a dose of Rocephin. He has had some bladder spasms; however, these have abated. He is ready to be discharged. He will need to be discharged with a Coy. He is given all supplies for a Coy for now. I discussed this with Corrine Plaza, she agrees with management, recommends h aving him followup soon in her clinic or with Dr. Payne. I have given him both their phone numbers. The UTI was due to Klebsiella oxytoca sensitive to third generation cephalosporins, he will be disch arged with a course of cefdinir. I recommend that he stop NSAIDs entirely. I have given him a referral to see Dr. Smalls, [facility], given his likely chronic kidney disease and mild acidosis with a bicarb of 18 on discharge. He is, otherwise, discharged in stable condition. /[id number]/MODL
== END 2018-05-31 12:19 | disposition home or self-care (01) ==
LOC: CED 12:02 → INTOOBSV 14:37 → CEDHOLD 14:37 → F1N 16:05
PROVIDERS: ADMIT Internal Medicine; ATTEND Student in an Organized Health Care Education/Training Program
PROC: 0T9B70Z Drainage of Bladder with Drainage Device, Via Natural or Artificial Opening (ICD-10-PCS; principal; 2018-05-30)
DX: N17.9 Acute kidney failure, unspecified (principal); N13.8 Other obstructive and reflux uropathy; R33.9 Retention of urine, unspecified; N39.0 Urinary tract infection, site not specified; B96.1 Klebsiella pneumoniae [K. pneumoniae] as the cause of diseases classified elsewhere; Z16.11 Resistance to penicillins; N13.30 Unspecified hydronephrosis; E86.9 Volume depletion, unspecified; N40.1 Benign prostatic hyperplasia with lower urinary tract symptoms; I10 Essential (primary) hypertension; M10.9 Gout, unspecified; N20.0 Calculus of kidney; Z87.891 Personal history of nicotine dependence; Z87.442 Personal history of urinary calculi; Z87.440 Personal history of urinary (tract) infections; Z96.0 Presence of urogenital implants
CPT/HCPCS: 51702; 74176; 96361; 96372; 96374; 99285; G0378; J0696; J1644; 80048-ER

== ENCOUNTER 2018-06-11 06:57 | Emergency (ER) | payer OTHER ==
--- NOTE | 2018-06-11 07:03 | EDPHY ---
H & P Time Seen by Provider: 06/11/18 07:05 HPI/ROS: Chief Complaint: Bladder spasm HPI: 73-year-old male with a history of a recent admission for urinary retention and urinary tract infection of Klebsiella oxytoca. Patient completed a course of cefdinir. He was discharged on the 31 of May with a Coy catheter in place. This was removed 8 days ago. During his hospitalization he noted he had a history of likely chronic kidney disease with acute kidney injury. Creatinine at discharge was 1.7. Since discharge patient has been having some bladder spasms occasionally but these became significantly worse this morning. He was seen by Corrine Plaza at [facility] yesterday. At that time he was explaining his bladder spasms and they put him on Uribel. Because of the spasms the patient states he has been unable to urinate. Pain is 8/10. No fevers or chills. He has not been drinking much fluid in the last day because of his urinary problems. ROS: 10 systems were reviewed and were negative except those elements noted in the HPI. PMH: Renal stones, urinary tract infections, BPH Social History: No smoking, no alcohol, no recreational drug use Family History: non-contributory Physical Exam: Gen: Awake, Alert, uncomfortable appearing HEENT: Nose: no rhinorrhea Eyes: PERRLA, EOMI Mouth: Moist mucosa Neck: Supple, no JVD Chest: nontender, lungs clear to auscultation Heart: S1, S2 normal, no murmur Abd: Soft, mildly distended, discomfort over his bladder, no guarding Back: no CVA tenderness, no midline tenderness Ext: no edema, non-tender Skin: no rash Neuro: CN II-XII intact, Sensation grossly intact, Strength 5/5 in bilateral upper and lower extremities - Medical/Surgical History Hx Asthma: No Hx Chronic Respiratory Disease: No Hx Diabetes: No Hx Cardiac Disease: No Hx Renal Disease: Yes Hx Cirrhosis: No Hx Alcoholism: No Hx HIV/AIDS: No Hx Splenectomy or Spleen Trauma: No Other PMH: kidney stones,lithotripsies. HTN. appendectomy,margarito. rhinoplasty. cynthia hernia repair,prostate infection,UTI - Social History Smoking Status: Former smoker Constitutional: Initial Vital Signs Temperature (C) 36.4 C 06/11/18 07:05 Heart Rate 92 06/11/18 07:05 Respiratory Rate 20 06/11/18 07:05 Blood Pressure 155/94 H 06/11/18 07:05 O2 Sat (%) 98 06/11/18 07:05 O2 Delivery Mode Room Air Allergies/Adverse Reactions: lisinopril Allergy (Unknown, Verified 05/30/18 17:04) Increased Blood Pressure Home Medications: Medication Instructions Recorded Allopurinol [Allopurinol 100 MG 100 mg PO DAILY 01/06/18 (*)] amLODIPine BESYLATE [Norvasc 10 mg 10 mg PO DAILY 01/06/18 (*)] Aspirin EC [Aspirin EC 81 mg (*)] 81 mg PO DAILY 05/30/18 Flomax 06/11/18 Uribel Capsule 06/11/18 Medical Decision Making Procedures: Procedure: Limited pelvic ultrasound. A limited pelvic was performed for the indication of lower abdominal tenderness and possible urinary retention. The lower abdomen was scanned looking for bladder distention. By ultrasound there appears to be a large amount of retained urine after voiding. The exam was performed by myself. ED Course/Re-evaluation: Bedside ultrasound performed by me shows approximately 500 mL of urine in his bladder. Patient states that he is unable to urinate. Plan will be to place an IV for IV analgesia, check his renal function. Will place a Coy catheter. Plan to discuss with Urology. Patient is feeling significantly improved after catheter placement, he has had over 600 mL out. Urine has been sent to [facility]. Patient's creatinine is 1.8. He has not been drinking in the last 24 hr. Will give him 500 mL of normal saline IV. I have paged the urologist. Case discussed with tara Ramsay With Urology. She agrees with the plan to leave the catheter in place. They will see him on Thursday or Thursday. - Data Points Laboratory Results: 06/11/18 06/11/18 07:59 07:37 POC Sodium 141 mEq/L mEq/L (135-145) POC Potassium 3.6 mEq/L mEq/L (3.3-5.0) POC Chloride 105.0 mEq/L mEq/L (97-110) POC Total CO2 21 mEq/L L mEq/L (22-31) POC BUN 18 mg/dL mg/dL (7-23) POC Creatinine 1.8 mg/dL H mg/dL (0.7-1.3) POC Glucose 103 mg/dL H mg/dL (70-100) POC Calcium 10.2 mg/dL mg/dL (8.5-10.4) Urine Color GREEN Urine Appearance CLEAR Urine pH 6.0 (5.0-7.5) Ur Specific [place] 1.015 (1.002-1.030) Urine Protein NEGATIVE (NEGATIVE) Urine Ketones NEGATIVE (NEGATIVE) Urine Blood NEGATIVE (NEGATIVE) Urine Nitrate NEGATIVE (NEGATIVE) Urine Bilirubin NEGATIVE (NEGATIVE) Urine Urobilinogen NEGATIVE EU EU (0.2-1.0) Ur Leukocyte Esterase NEGATIVE (NEGATIVE) Urine Glucose NEGATIVE (NEGATIVE) Medications Given: Discontinued Medications Fentanyl (Sublimaze) 50 mcg IVP EDNOW ONE Stop: 06/11/18 07:33 Last Admin: 06/11/18 07:36 Dose: 50 mcg Point of Care Test Results: CBC CBC Collection Date 06/11/18 CBC Collection Time 07:30 WBC 11.18 RBC 4.67 HGB 14.5 HCT 42.5 PLT 388 Neut # 7.26 Neut 64.9 LYMPH # 2.58 LYMPH 23.1 MCV 91.0 Chemistry 06/11/18 07:37 POC Sodium 141 mEq/L mEq/L (135-145) POC Potassium 3.6 mEq/L mEq/L (3.3-5.0) POC Chloride 105.0 mEq/L mEq/L (97-110) POC Total CO2 21 mEq/L L mEq/L (22-31) POC BUN 18 mg/dL mg/dL (7-23) POC Creatinine 1.8 mg/dL H mg/dL (0.7-1.3) POC Glucose 103 mg/dL H mg/dL (70-100) POC Calcium 10.2 mg/dL mg/dL (8.5-10.4) Departure - Departure Disposition: Home, Routine, Self-Care Clinical Impression: Urinary retention Condition: Good Instructions: Urinary Retention in Men (ED), Coy Catheter Placement and Care (ED) Additional Instructions: Follow up with urologist Thursday or Thursday. Call today for next appointment. Return to the emergency department for increasing pain, fevers or chills, nausea , vomiting, problems with her catheter, or any other concerns. Referrals: David Earl [Primary Care Provider] - As per Instructions Jose Alberto Payne MD [Medical Doctor] - As per Instructions
[2018-06-11] MEDS ORDERED: fentaNYL 100 MCG/2 ML INJ IVP ONE (07:32)
[2018-06-11] MEDS ORDERED: LIDOCAINE 2% JELLY 20 ML (UROJECT) ONE (07:48)
[2018-06-11] MEDS ORDERED: LIDOCAINE 2% JELLY 20 ML (UROJECT) UR ONE (07:55)
[2018-06-11] MEDS ORDERED: NS 500 ML IV ONE (08:10)
[2018-06-11 09:30] VITALS: BP 119/75
== END 2018-06-11 09:56 | disposition home or self-care (01) ==
LOC: CED 06:57
DX: R33.9 Retention of urine, unspecified (principal); N32.89 Other specified disorders of bladder; I10 Essential (primary) hypertension; Z87.442 Personal history of urinary calculi; Z87.440 Personal history of urinary (tract) infections; Z87.891 Personal history of nicotine dependence; Z90.89 Acquired absence of other organs
CPT/HCPCS: 51702; 51798; 96374; 99284; J3010; 80048-ER

== ENCOUNTER 2018-06-16 00:05 | Emergency (ER) | payer OTHER ==
--- NOTE | 2018-06-16 00:33 | EDPHY ---
H & P Stated Complaint: Coy removed in am, now retention Time Seen by Provider: 06/16/18 00:08 HPI/ROS: CHIEF COMPLAINT: Urinary retention HISTORY OF PRESENT ILLNESS: This is a 72-year-old male who is hard of hearing. Evidently he has had a real rough go in the last 6 months. He had presented with kidney stone with a urinary tract infection this past December. It was a stent involved and the culture grew out Enterobacter faecalis, which ultimately was sensitive to amoxicillin. He was discharged on same. Approximately 2 weeks ago he 1st presented with urinary retention. At that time he grew out Klebsiella oxytocin the which was sensitive to 3rd generation cephalosporins. Following an overnight admission he was discharged on cefdinir. Interestingly, I only learned of this infection by way of the discharge summary rather than the culture panels as there was no microbiology results in the system relevant to that admission 2 weeks ago. Subsequently, he was seen on the by his urologist. There was some complaint of bladder spasms. He was placed on Uribel. He presented here on the with approximately 500 cc of retained urine. A Coy catheter is placed and culture was negative. He is no longer taking the Uribel. Subsequently, yesterday on June 15, approximately 10 hr ago he had a Coy removed. He subsequently had a successful urination the most recent at 6: 00 p.m.. Since then he has had the sense that he needs to void but has been able to do so. He notes that he presented the 1st time, some 2 weeks ago, much later in the course was really quite uncomfortable. He does not feel that he has waited this long. Old charts reviewed and indeed his creatinine was 2.4 POC, on the admission on May 30, and subsequently came back to 1.8 overnight. He had another creatinine checked on June 11 when seen here in the ER at [facility] and was noted to have a 1.7. P: Worse when he stands up straight and when we palpate the bladder area Q: Sense that he can't urinate R: No radiation S: Moderate T: Progressive since 8:00 p.m. REVIEW OF SYSTEMS: Constitutional: No fever, no chills. Cardiovascular: No chest pain, no palpitations. Respiratory: No cough, shortness of breath, or wheezing. Gastrointestinal: No nausea vomiting. He complains of sensation of pressure and fullness in the suprapubic region Genitourinary: No hematuria or frequency. A 10 system review of systems was performed and is negative except for the noted findings in the HPI. Source: Patient Exam Limitations: No limitations - Personal History Current Tetanus/Diphtheria Vaccine: Unsure Current Tetanus Diphtheria and Acellular Pertussis (TDAP): Unsure - Medical/Surgical History Hx Asthma: No Hx Chronic Respiratory Disease: No Hx Diabetes: No Hx Cardiac Disease: No Hx Renal Disease: Yes Hx Cirrhosis: No Hx Alcoholism: No Hx HIV/AIDS: No Hx Splenectomy or Spleen Trauma: No Other PMH: kidney stones,lithotripsies, prostate infection, UTI. CHITIMACHA. HTN. appendectomy,margarito, rhinoplasty. cynthia hernia repair - Family History Significant Family History: No pertinent family hx - Social History Smoking Status: Former smoker Alcohol Use: None Drug Use: None - Physical Exam Exam: General: WD, WN, nontoxic. Afebrile, temperature is 37.1 p.o. On my reading Abdomen: His abdomen is scaphoid with a sense of distention noted in the lower abdomen, percussion of which makes him feel the urge to void. BS present, soft , discomfort is present when I palpate the suprapubic region. There is dullness percussed in the lower abdomen up to the umbilicus. No masses. No guarding or rebound. No CVA tenderness. Genitalia: nl hair pattern. Descended bilaterally. Circumsized, no lesions or discharge. Scrotum without swelling or tenderness. No focal tenderness. No discharge. Constitutional: Initial Vital Signs Temperature (C) 36.5 C 06/16/18 00:13 Heart Rate 86 06/16/18 00:13 Respiratory Rate 16 06/16/18 00:13 Blood Pressure 166/93 H 06/16/18 00:13 O2 Sat (%) 100 06/16/18 00:13 O2 Delivery Mode Room Air Allergies/Adverse Reactions: lisinopril Allergy (Unknown, Verified 06/16/18 00:13) Increased Blood Pressure Home Medications: Medication Instructions Recorded Allopurinol [Allopurinol 100 MG 100 mg PO DAILY 01/06/18 (*)] amLODIPine BESYLATE [Norvasc 10 mg 10 mg PO DAILY 01/06/18 (*)] Aspirin EC [Aspirin EC 81 mg (*)] 81 mg PO DAILY 05/30/18 Flomax 06/11/18 Medical Decision Making ED Course/Re-evaluation: On initial evaluation it was evident that he had a bladder distention. Thus, the nurse was able to pass a catheter healing 500 cc of fluid. Initial point of care urinalysis suggested no infection. Given his track record of 2 positive urine cultures in the last 6 months a urine culture was requested A basic was performed showing a point of care creatinine of 1.9. This compared favorably to the 1.8 last week I reviewed with him the use of the leg bag as well as the Coy bag. He is to call his urologist tomorrow. Differential Diagnosis: Diagnostic considerations include, but are not limited to, the following, 5this represents a partial list of diagnoses considered These considerations are based on history, physical exam, past history, reassessment and diagnostic testing: Kidney stones, urolithiasis, bladder stones, bladder outlet obstruction, prostatitis, UTI - Data Points Medications Given: Discontinued Medications Lidocaine (Uroject Lidocaine 2% Jelly) 20 ml UR EDNOW ONE Stop: 06/16/18 00:36 Last Admin: 06/16/18 00:35 Dose: 20 ml Point of Care Test Results: Chemistry 06/16/18 00:37 POC Sodium 143 mEq/L mEq/L (135-145) POC Potassium 3.8 mEq/L mEq/L (3.3-5.0) POC Chloride 108.0 mEq/L mEq/L (97-110) POC Total CO2 22 mEq/L mEq/L (22-31) POC BUN 22 mg/dL mg/dL (7-23) POC Creatinine 1.9 mg/dL H mg/dL (0.7-1.3) POC Glucose 103 mg/dL H mg/dL (70-100) POC Calcium 10.1 mg/dL mg/dL (8.5-10.4) Urine Dip Collection Date 06/16/18 Collection Time 00:40 Specific [employer] (1.002-1.030) 1.020 PH (5.0-7.5) 6.0 Leukocytes (Negative) Negative Nitrites (Negative) Negative Protein (Negative) Trace Glucose (Negative) Negative Ketones (Negative) Negative Urobilnogen (0.2-1.0 EU) 0.2 Bilirubin (Negative) Negative Blood (Negative) Trace Departure - Departure Disposition: Home, Routine, Self-Care Clinical Impression: Acute urinary retention, Chronic kidney disease (CKD) Condition: Good Instructions: Urinary Retention in Men (ED) Additional Instructions: Call your urologist in the am for further instructions. Return if fever or nausea or vomiting. Referrals: Patient,NotPresent [Primary Care Provider] - As per Instructions
[2018-06-16] MEDS ORDERED: LIDOCAINE 2% JELLY 20 ML (UROJECT) UR ONE (00:35)
[2018-06-16 01:41] VITALS: BP 151/73
== END 2018-06-16 01:30 | disposition home or self-care (01) ==
LOC: CED 00:05
PROC: 0T9B70Z Drainage of Bladder with Drainage Device, Via Natural or Artificial Opening (ICD-10-PCS; principal; 2018-06-16)
DX: R33.9 Retention of urine, unspecified (principal); I12.9 Hypertensive chronic kidney disease with stage 1 through stage 4 chronic kidney disease, or unspecified chronic kidney disease; N18.9 Chronic kidney disease, unspecified; H91.90 Unspecified hearing loss, unspecified ear; Z87.891 Personal history of nicotine dependence
CPT/HCPCS: 80048-ER; 99283-ER

== ENCOUNTER 2018-06-25 05:39 | Observation (INO) | payer OTHER ==
--- NOTE | 2018-06-24 14:07 | GHP ---
[f rep st] PREOP HISTORY AND PHYSICAL DATE OF ADMISSION: 06/25/2018 ADMISSION DIAGNOSIS: BPH with urinary retention. HISTORY OF PRESENT ILLNESS: This is a 73-year-old gentleman who has had urinary retention and is adm itted for a TURP. His prostate on ultrasound revealed 56 g, and he had previous cystoscopies that sh owed significant bladder outlet obstruction and a urethral polyp. At the present time he is admitted for a TURP. The indications, complications, risks, and options armendariz ve been discussed in detail and he appears to understand and he is admitted for the above procedure. PAST MEDICAL HISTORY: Positive for urinary retention, elevated PSA, gout, hypertension, hydronephros is, ureteral calculus. PAST SURGICAL HISTORY: Appendectomy, ureteroscopy with kidney stones, inguinal hernia repair, and ch olecystectomy. MEDICATIONS: Allopurinol, Flomax, Uribel. ALLERGIES: No known drug allergies. FAMILY HISTORY: Positive for bladder cancer, hypertension, kidney stones. SOCIAL HISTORY: Nondrinker, former smoker. REVIEW OF SYSTEMS: Negative cardiac, respiratory, GI, and endocrine. VITAL SIGNS: In the office, blood pressure is 136/76, heart rate 73 and regular, respirations 16, O2 saturation on room air 97%. PHYSICAL EXAM: VITAL SIGNS: Stable. CHEST: Clear. HEART: Regular rate and rhythm. ABDOMEN: No rmal. No organomegaly, rebound or guarding. LOWER EXTREMITIES: Normal at the present time. ASSESSMENT AND PLAN: He is admitted for a transurethral resection of the prostate. /[id number]/MODL
[2018-06-25] MEDS ORDERED: LR 1,000 ML IV ONE (05:47)
[2018-06-25] MEDS ORDERED: LIDOCAINE 1% 2 ML INJ ID PRN (05:47)
[2018-06-25] MEDS ORDERED: ERTAPENEM 1 GM in NS 100 ML IV ONE (06:00)
[2018-06-25] MEDS ORDERED: PROPOFOL/EMULSION 500 MG/50 ML BOTTLE IV ONE (06:57)
[2018-06-25] MEDS ORDERED: fentaNYL 250 MCG/5 ML INJ ONE (06:58)
--- NOTE | 2018-06-25 06:58 | PDHPUP ---
History & Physical Update H&P update statement: This history and physical update is based on an assessment of the patient which was completed after admission or registration (within 24 hours), but prior to the surgery/procedure. H&P update: H&P reviewed & patient examined, no change in patient's condition since H&P completed
[2018-06-25] MEDS ORDERED: MIDAZOLAM 2 MG/2 ML VIAL IVP ONE (07:03)
--- NOTE | 2018-06-25 07:09 | PDANEPAE ---
ANE History of Present Illness 73 year old male for TURP. History significant for renal insufficiency, htn, and renal stones. ANE Past Medical History - Cardiovascular History Hx Hypertension: Yes Hx Arrhythmias: No Hx Chest Pain: No Hx Coronary Artery / Peripheral Vascular Disease: No Hx CHF / Valvular Disease: No Hx Palpitations: No - Pulmonary History Hx COPD: No Hx Asthma/Reactive Airway Disease: No Hx Recent Upper Respiratory Infection: No Hx Oxygen in Use at Home: No Hx Sleep Apnea: No Sleep Apnea Screening Result - Last Documented: Positive - Neurologic History Hx Cerebrovascular Accident: No Hx Seizures: No Hx Dementia: No - Endocrine History Hx Diabetes: No - Renal History Hx Renal Disorders: Yes Renal History Comment: ADITI. HAS CATHETER IN PLACE - Liver History Hx Hepatic Disorders: No - Neurological & Psychiatric Hx Hx Neurological and Psychiatric Disorders: No - Cancer History Hx Cancer: Yes Cancer History Comment: MELANOMA REMOVED BACK - Congenital Disorder History Hx Congenital Disorders: No - GI History Hx Gastrointestinal Disorders: No - Other Health History Other Health History: NEG - Chronic Pain History Chronic Pain: No - Surgical History Prior Surgeries: LITHOTRIPSY X2. CHOLECTYSTECTOMY. TYRA HERNIA ING. RHINOPLASTY. APPENDECTOMY ANE Review of Systems Review of systems is: negative Review of Systems: - Exercise capacity METS (RN): 5 METS ANE Patient History - Allergies Allergies/Adverse Reactions: lisinopril Allergy (Unknown, Verified 06/16/18 00:13) Increased Blood Pressure - Home Medications Home Medications: Allopurinol [Allopurinol 100 MG (*)] 100 mg PO DAILY 01/06/18 [Last Taken 04:00] amLODIPine BESYLATE [Norvasc 10 mg (*)] 10 mg PO DAILY 01/06/18 [Last Taken 05/15 04:00] - NPO status NPO Since - Liquids (Date): 06/25/18 NPO Since - Liquids (Time): 04:00 NPO Since - Solids (Date): 06/24/18 NPO Since - Solids (Time): 19:00 - Smoking Hx Smoking Status: Former smoker ANE Labs/Vital Signs - Vital Signs Blood Pressure: 134/79 Heart Rate: 86 Respiratory Rate: 18 O2 Sat (%): 99 Height: 182.88 cm Weight: 95.254 kg ANE Physical Exam - Airway Neck exam: FROM Mallampati Score: Class 3 Mouth exam: normal dental/mouth exam - Pulmonary Pulmonary: no respiratory distress - Cardiovascular Cardiovascular: regular rate and rhythym - ASA Status ASA Status: II ANE Anesthesia Plan Anesthesia Plan: GA w LMA
[2018-06-25] MEDS ORDERED: LIDOCAINE 2% JELLY 20 ML (UROJECT) ONE (07:50)
--- NOTE | 2018-06-25 08:24 | POSTOPPROG ---
Post Op Note Date of Operation: 06/25/18 (dictated) Surgeon: Jose Alberto Payne Anesthesiologist: Chivo Anesthesia: GET(General Endotracheal) Pre-op Diagnosis: bph Procedure: turp Inf/Abcess present in the surg proc area at time of surgery?: No EBL: 50-100 Drains: Other (lange) Specimen(s): sent
[2018-06-25] MEDS ORDERED: OPIUM/BELLADONNA ALKALO SUPP PR PRN (08:25)
[2018-06-25] MEDS ORDERED: ZOLPIDEM TARTRATE 5 MG TAB PO PRN (08:27)
[2018-06-25] MEDS ORDERED: ACETAMINOPHEN 325 MG TAB PO PRN (08:27)
[2018-06-25] MEDS ORDERED: oxyCODONE IR 5 MG TAB PO PRN (08:27)
[2018-06-25] MEDS ORDERED: ONDANSETRON 4 MG/2 ML VIAL IVP PRN (08:27)
[2018-06-25] MEDS ORDERED: ONDANSETRON DISINTEGRATING 4 MG TAB PO PRN (08:27)
[2018-06-25] MEDS ORDERED: D5W LR 1,000 ML IV SCH (08:30)
--- NOTE | 2018-06-25 08:37 | POSTANESTH ---
Post Anesthetic Evaluation Cardiovascular Status: Normal, Stable Respiratory Status: Normal, Stable Level of Consciousness/Mental Status: Mildly Sleepy, Arousable Pain Control: Adequate, Prn Tx Ordered Nausea/Vomiting Control: Adequate, Prn Tx Ordered Complications Possibly Related to Anesthesia: None Noted
[2018-06-25] MEDS ORDERED: HYDROCODONE/APAP 5/325 TAB ONE ×2 (09:07→09:30)
[2018-06-25] MEDS ORDERED: fentaNYL 100 MCG/2 ML INJ IVP PRN (09:07)
[2018-06-25] MEDS ORDERED: PROMETHAZINE HCL 25 MG/ML INJ IVP PRN (09:07)
[2018-06-25] MEDS ORDERED: LABETALOL HCL 5 MG/ML 20 ML MDV IVP PRN (09:07)
[2018-06-25] MEDS ORDERED: ALBUTEROL 3 ML DEYVIAL IH PRN (09:07)
[2018-06-25] MEDS ORDERED: MEPERIDINE 25 MG/0.5 ML AMP IVP PRN (09:07)
[2018-06-25] MEDS ORDERED: HYDROmorphONE/DILAUDID 2 MG/ML INJ IVP PRN (09:07)
[2018-06-25] MEDS ORDERED: NALOXONE HCL 0.4 MG/ML INJ IVP PRN (09:07)
[2018-06-25] MEDS: HYDROCODONE/APAP 5/325 TAB PO PRN ×3 (09:08→16:43)
--- NOTE | 2018-06-25 12:55 | GOP ---
[f rep st] OPERATIVE REPORT DATE OF OPERATION: 06/25/2018 SURGEON: Jose Alberto Payne MD NEUROSURGEON: Jose Alberto Payne MD. ANESTHESIA: General. ANESTHESIOLOGIST: Hillary Waldron MD. PREOPERATIVE DIAGNOSIS: Urinary retention secondary to BPH. POSTOPERATIVE DIAGNOSIS: Urinary retention secondary to BPH with microabscess of the prostate. PROCEDURE PERFORMED: TUR of the prostate. FINDINGS: SPECIMENS: Sent to pathology. ESTIMATED BLOOD LOSS: Less than 50 mL. DESCRIPTION OF PROCEDURE: After undergoing general anesthesia and being prepped and draped in normal sterile fashion and appropriate time-out, the scope was passed under direct vision into the bladder. The bladder had trabeculation. No tumors or stones identified. Intravesical lobe identified. The right lateral lobe and intravesical lobe were resected and in normal fashion. The left lateral lobe resected. At the end of the procedure, hemostasis was noted. External sphincter approximated at th e midline symmetrically. Verumontanum preserved. Ureteral orifices were preserved and Uro-jet place d urethra. A 22 three-way catheter passed into the bladder with a Mandarin guide, and 70 cc balloon inflated, traction placed and irrigated clear. He will be admitted for postoperative care. COMPLICATIONS: None. /[id number]/MODL
[2018-06-26] MEDS ORDERED: ALLOPURINOL 100 MG TAB PO SCH (09:00)
--- NOTE | 2018-06-26 09:14 | SOAPPROG ---
SOAP Progress Note Assessment/Plan: Assessment: BPH with urinary obstruction Acute POD #1, plan dc lange and dc home if pt voids Plan: dc planning 06/26/18 10:10 Subjective: doing well, no pain, urine clear Objective: Vital Signs Temp Pulse Resp BP Pulse Ox 37.4 C 60 16 137/79 H 96 06/26/18 08:08 06/26/18 08:08 06/26/18 08:08 06/26/18 08:08 06/26/18 08:08 06/25/18 06/26/18 06/27/18 05:59 05:59 05:59 Intake Total 1500 900 Output Total 0 9750 Balance 1500 -8850 Physical Exam - Physical Exam General Appearance: alert Neck: supple Respiratory: No respiratory distress Cardiac/Chest: regular rate, rhythm Back: No CVA tenderness Extremities: No calf tenderness, No Noel's sign Neuro/Psych: alert, oriented x 3 ICD10 Worksheet Patient Problems: Problems Problem Status Onset BPH with urinary obstruction Acute Acute kidney injury Acute Acute renal insufficiency Acute Obstructive uropathy Acute Prostatitis Acute Ureteral stone with hydronephrosis Acute - ICD10 Problem Qualifiers (1) BPH with urinary obstruction
--- NOTE | 2018-06-26 10:43 | ASMTLACE ---
LACE Length of stay for Answers: Less than 1 day current admission Acuity / Level of Answers: No Care: Did the patient have an inpatient admission? Date Signed: 06/26/2018 10:43 AM Electronically Signed By:JENNIE Nguyen
--- NOTE | 2018-06-26 10:54 | ASDISCHSUM ---
Discharge Information Plan Status:Home with No Needs Medically Cleared to Leave:06/25/2018 Discharge Date:06/25/2018 CM D/C Disposition:Home, Routine, Self-Care ADT D/C Disposition:Home, Routine, Self-Care Projected Discharge Date:06/25/2018 Transportation at D/C:Family Discharge Delay Reason: Follow-Up Date:06/25/2018 Discharge Slot: Final Diagnosis: Placement Information Patient Contact Information Contact Name:CHACORTA Relationship: Address:[address] Work Phone: Ambar:JORGE Jackson Phone: State/Zip Code:[place] [address] Email: Financial Information Financial Class:Medicare Advantage Plans Primary Plan Desc:[facility] Primary Plan Number:[id number] Secondary Plan Desc: Secondary Plan Number: Assessment Information LACE LACE Length of stay for Answers: Less than 1 day current admission Acuity / Level of Answers: No Care: Did the patient have an inpatient admission? Date Signed: 06/26/2018 10:43 AM Electronically Signed By:JENNIE Nguyen Case Management Discharge Plan Note Case Management Discharge Discharge Order Complete? Answers: Yes Patient to Obtain Answers: via Family Medications Transportation Arranged Answers: Family/Friends Discharge Comments Notes: Pt is s/p TURP for urinary retention and BPH. He is discharging home today with his and no CM needs. Date Signed: 06/26/2018 10:53 AM Electronically Signed By:JENNIE Nguyen Intervention Information
[2018-06-26 11:33] VITALS: BP 131/81
--- NOTE | 2018-06-29 15:48 | GDS ---
[f rep st] DISCHARGE SUMMARY ADMISSION DIAGNOSIS: BPH, urinary retention. DISCHARGE DIAGNOSIS: BPH, urinary retention. PROCEDURE: TURP. HOSPITALIZATION: Patient was an a.m. admission, had the above procedure performed. Discharged home postop day 1 to have follow up with me in 3 weeks. Pathology was pending at the time of dictation. COMPLICATIONS: None. /[id number]/MODL
== END 2018-06-26 12:59 | disposition home or self-care (01) ==
LOC: F1N 05:39 → F3E 12:28
PROVIDERS: ADMIT Specialist; ATTEND Specialist
PROC: 0VB08ZZ Excision of Prostate, Via Natural or Artificial Opening Endoscopic (ICD-10-PCS; principal; 2018-06-25 07:15)
DX: N40.1 Benign prostatic hyperplasia with lower urinary tract symptoms (principal); R33.8 Other retention of urine; N41.2 Abscess of prostate; I10 Essential (primary) hypertension; Z85.820 Personal history of malignant melanoma of skin
CPT/HCPCS: 52601; G0378; J1335; J2250; J2704; J3010